=== PATIENT | female | born 1955 | race Caucasian/White ===

== ENCOUNTER 2022-03-09 15:24 | Emergency (ER) | payer MEDICARE, BC ==
[2022-03-09] MEDS ORDERED: Boostrix 0.5 ML (Tdap) VIAL (>/=7 yrs of age) ONE (15:54)
[2022-03-09] MEDS ORDERED: Bacitracin 1 PK ONE (17:49)
== END 2022-03-09 18:20 | disposition home or self-care (01) ==
LOC: ERS 15:24
DX: S51.011A Laceration without foreign body of right elbow, initial encounter (principal); S00.81XA Abrasion of other part of head, initial encounter; I10 Essential (primary) hypertension; Z23 Encounter for immunization; Z95.5 Presence of coronary angioplasty implant and graft; W05.2XXA Fall from non-moving motorized mobility scooter, initial encounter
CPT/HCPCS: 70450; 90471; 90715; 93005